=== PATIENT | female | born 1995 | race American Indian/Alaskan Native ===

== ENCOUNTER 2020-12-30 23:30 | Emergency (ER) | payer SELFPAY ==
[2020-12-31] MEDS ORDERED: diphenhydrAMINE 50 MG/ML VIAL IM NR (00:56)
[2020-12-31] MEDS ORDERED: HALOPERIDOL LACTATE 5 MG/1 ML INJ IM NR (00:56)
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
[2020-12-31 01:06] LABS: Basophils # (Auto) 0.1 K/mm3 (0.0-0.1); Basophils % (Auto) 0.9 % (0.0-1.8); Eosinophils % (Auto) 0.2 % (0.0-4.3); Hematocrit 41.1 % (30.3-42.9); Hemoglobin 13.9 gm/dl (10.1-14.3); Lymphocytes # (Auto) 1.4 K/mm3 (1.2-5.4); Lymphocytes % (Auto) 13.7 % (13.4-35.0); Mean Corpuscular HGB Conc 34 % (30-34); Mean Corpuscular Volume 97 fl (79-97); Monocytes # (Auto) 0.5 K/mm3 (0.0-0.8); Monocytes % (Auto) 5.1 % (0.0-7.3); Platelet Count 217 K/mm3 (140-440); Red Blood Count 4.25 M/mm3 (3.65-5.03); Red Cell Distribution Width 13.1 % (13.2-15.2)
[2020-12-31 01:24] LABS: Blood Urea Nitrogen 7 mg/dL (7-17); Calcium 8.6 mg/dL (8.4-10.2); Hemolysis Index 25
[2020-12-31 01:27] LABS: BUN/Creatinine Ratio 10
[2020-12-31] MEDS ORDERED: diphenhydrAMINE 50 MG/ML VIAL IV ONE (01:44)
[2020-12-31] MEDS ORDERED: HALOPERIDOL LACTATE 5 MG/1 ML INJ IM ONE (01:44)
[2020-12-31] MEDS ORDERED: SODIUM CHLORIDE 0.9% 1000 ML 1,000 ML ONE (01:44)
[2020-12-31] MEDS ORDERED: SODIUM CHLORIDE 0.9% 1000 ML 1,000 ML IV ONE (01:45)
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
[2020-12-31 09:04] VITALS: BP 109/60
== END 2020-12-31 09:15 | disposition home or self-care (01) ==
LOC: ED 23:30
DX: F10.929 Alcohol use, unspecified with intoxication, unspecified (principal); V89.2XXA Person injured in unspecified motor-vehicle accident, traffic, initial encounter; Y92.410 Unspecified street and highway as the place of occurrence of the external cause; Y93.89 Activity, other specified; Y99.8 Other external cause status
CPT/HCPCS: 36415; 70450; 71260; 72125; 74177; 80048; 84703; 85025; 96372; 96374; 99284; J1200; J1630; J7030; Q9967; 80320; G0480